=== PATIENT | female | born 1960 | race Caucasian/White ===

== ENCOUNTER 2020-03-15 19:52 | Emergency (ER) | payer OTHER, SELFPAY ==
[2020-03-15 19:58] VITALS: BP 151/88; PULSE 101; RESP 16; TEMP 37.4; O2SAT 97
--- NOTE | 2020-03-15 20:21 | ED.URI ---
HPI - URI/Sore Throat General Chief Complaint: Upper Respiratory Infection Stated Complaint: sore throat Time Seen by Provider: 03/15/20 20:10 Source: patient and RN notes reviewed Mode of arrival: ambulatory Limitations: no limitations History of Present Illness HPI Narrative: 59-year-old female who presents to express care with complaints of gland in her neck swelling yesterday and sore throat today. Patient states that she has had some tiredness today and also a foul taste in her mouth and has taken Ibuprofen for her discomfort. Patent rated her pain as 6 stating constant discomfort of varying degrees. MD elicited complaint: sore throat Pertinent past history: seasonal allergies Onset (ago): day(s) (2) Consistency: constant Severity: moderate Pain scale (0-10): 6 Description of mucous: clear Able to tolerate fluids by mouth: Yes Exacerbating factors: swallowing Relieving factors: nothing Associated symptoms: denies other symptoms, sore throat and other (tiredness and foul taste in mouth) Treatments prior to arrival: ibuprofen Related Data Home Medications Medication Instructions Recorded Confirmed estradiol 0.5 mg PO DAILY 03/15/20 03/15/20 progesterone micronized 100 mg PO DAILY 03/15/20 03/15/20 zolpidem [Ambien] 10 mg PO HS 03/15/20 03/15/20 Allergies Allergy/AdvReac Type Severity Reaction Status Date / Time No Known Allergies Allergy Unverified 02/19/15 14:38 Review of Systems Review of Systems: Narrative: CONSTITUTIONAL: Denies fever, chills, or sweats. EYES: Denies visual changes, redness, or discharge. ENT: Denies rhinorrhea, congestion, positive sore throat or otalgia. CARDIOVASCULAR: Denies chest pain, palpitations, or edema. RESPIRATORY: Denies cough or dyspnea. GASTROINTESTINAL: Denies abdominal pain, nausea, vomiting, or diarrhea. GENITOURINARY: Denies dysuria or hematuria. SKIN: Denies rash or itching. MUSCULOSKELETAL: Denies lumbar or cervical back pain, no joint pain, or myalgia NEUROLOGIC: Denies headache, numbness, or weakness. PSYCHIATRIC: Positive anxiety or depression. All systems reviewed & are unremarkable except as noted in HPI and below PMFSH Past Medical History Medical History (Updated 03/16/20 @ 00:01 by Background Daemon) Arrhythmia Chronic anxiety Insomnia Osteopenia after menopause Surgical History Surgical History (Updated 03/18/20 @ 19:57 by Miroslava Saravia NP) No significant past surgical history Social History Social History (Updated 09/03/19 @ 10:56 by Laura Edwards MA) Smoking status: Never smoker Alcohol intake: never Substance use: never Comments At time of signature, agree with nursing past medical, surgical, social history. There is no relevant family history pertinent to the presenting complaint Exam Narrative: Exam Narrative: GENERAL: Well-appearing, well-nourished, and in no acute distress. HEAD: Normocephalic, atraumatic. EYES: PERRLA and EOMI. ENT: Nares mild redness, clear rhinorrhea or epistaxis. Mucous membranes moist.TM's normal with good light reflex, throat red with no exudates or lesions, no tonsil enlargement NECK: Supple.no lymphadenopathy CHEST: Clear to auscultation. No respiratory distress.SAO2 97% on room air HEART: Regular rate and rhythm. No murmur heard. Normal peripheral pulses. ABDOMEN: Soft, nontender, nondistended, normal active bowel sounds. EXTREMITIES: Normal range of motion. No edema. SKIN: Warm, dry, no rash. NEURO: No focal deficits. Alert and oriented x3. Course Vital Signs Vital signs: Vital Signs Temperature 37.4 C 03/15/20 19:58 Pulse Rate 101 H 03/15/20 19:58 Respiratory Rate 16 03/15/20 19:58 Blood Pressure 151/88 H 03/15/20 19:58 Pulse Oximetry 97 03/15/20 19:58 Temperature 37.4 C 03/15/20 19:58 Pulse Rate 101 H 03/15/20 19:58 Respiratory Rate 16 03/15/20 19:58 Blood Pressure 151/88 H 03/15/20 19:58 Pulse Oximetry 97 03/15/20 19:58 MDM - URI/Sore Throat M
== END 2020-03-15 20:40 | disposition home or self-care (01) ==
PROVIDERS: Emergency Provider Registered Nurse; PCP Family Medicine
DX: J06.9 Acute upper respiratory infection, unspecified (principal); F41.9 Anxiety disorder, unspecified
CPT/HCPCS: 87081; 87880; 99213; G0463